=== PATIENT | male | born 1970 | race American Indian/Alaskan Native ===

== ENCOUNTER 2021-05-08 14:27 | Outpatient (CLI) | payer BC ==
--- NOTE | 2021-05-08 18:02 | Magnetic Resonance Report ---
MRI RIGHT ELBOW WITHOUT CONTRAST INDICATION / CLINICAL INFORMATION: PAIN IN RIGHT ELBOW M25.521. TECHNIQUE: Multiplanar, multisequence MR images were obtained. COMPARISON: None available. FINDINGS: ULNAR COLLATERAL LIGAMENT: No significant abnormality. RADIAL COLLATERAL LIGAMENT: No significant abnormality. LATERAL ULNAR COLLATERAL LIGAMENT: No significant abnormality. COMMON FLEXOR TENDON: No significant abnormality. COMMON EXTENSOR TENDON: No significant abnormality. BICEPS TENDON: No significant abnormality. TRICEPS TENDON: No significant abnormality. ARTICULAR CARTILAGE: No significant abnormality. JOINT SPACE: No effusion. No synovitis. No intra-articular bodies. BONES: No fracture. No bone marrow edema. No osseous lesion. CUBITAL TUNNEL / ULNAR NERVE: Moderately enlarged edematous ulnar nerve SUBCUTANEOUS SOFT TISSUES: No significant abnormality. ADDITIONAL FINDINGS: None. IMPRESSION: 1. Moderate ulnar neuritis. Signer Name: Mukul Camacho MD Signed: 05/08/2021 5:57 PM Workstation Name: [id number]
== END 2021-05-08 14:28 | disposition home or self-care (01) ==
LOC: MRI 14:27
PROVIDERS: ATTEND Orthopaedic Surgery
DX: M25.521 Pain in right elbow (principal); M79.89 Other specified soft tissue disorders